=== PATIENT | female | born 1945 | race Caucasian/White ===

== ENCOUNTER → 2018-08-26 | Outpatient (CLI) | payer MEDICARE, MEDICAID ==
--- NOTE | 2018-08-27 09:06 | REP ---
CT CHEST WITHOUT CONTRAST: HISTORY: Solitary pulmonary nodule. Comparison chest CT studies are reviewed from May 17 and November 24, 2015. FINDINGS: There is a 8 mm somewhat irregular predominantly solid nodule in the right upper lobe. On today's study this is displayed on page 32 of 109 in series 201. It is visualized to somewhat better advantage for comparison purposes, on sagittal multiplanar re-formation sequence page 35 of 116 in series 205 of today's study. When comparing the sagittal reformat slices through the nodule on today's study with the May and November 2015 prior exam, it can be seen that the nodule is unchanged. It does have somewhat spiculated margins but its stability for over 3 years is reassuring. No other significant pulmonary nodule is appreciated. Calcified gallstones are visible in the gallbladder. No adrenal lesion is seen. There is an accessory splenule. No hilar or mediastinal mass or adenopathy is seen. Left and right coronary artery vascular calcification are noted. The exam is otherwise unremarkable. IMPRESSION: There is a somewhat spiculated but radiographically stable 8 mm nodule in right upper lobe unchanged from November 24, 2015 prior study more than 3 years ago. This is consistent with a benign nodule. Electronically Signed by Alfonso Pickett MD 08/27/2018 09:38 A
== END ==
LOC: M RAD 13:54
PROVIDERS: ATTEND Internal Medicine Pulmonary Disease
DX: R91.1 Solitary pulmonary nodule (principal)